=== PATIENT | female | born 1985 | race Caucasian/White ===

== ENCOUNTER 2022-10-25 16:14 | Emergency (ER) | payer OTHER, SELFPAY ==
--- NOTE | ~2022-10-25 | US_ITS ---
EXAMINATION: US VENOUS ULTRASOUND WITH DOPPLER LOWER EXTREMITY, BILATERAL CLINICAL INFORMATION: Pain COMPARISON: None TECHNIQUE: Ultrasound of the deep veins is performed from the hip to the calf with compression sonography and color and pulse Doppler assessment. Spectral analysis with color-flow imaging is performed. FINDINGS: RIGHT: There is normal venous compression and respiratory variation and augmented flow. The visualized common femoral vein, superficial femoral vein, profunda femoral vein, popliteal vein, and the trifurcation region shows no evidence of deep venous thrombosis. There is no significant popliteal fossa cyst. LEFT: There is normal venous compression and respiratory variation and augmented flow. The visualized common femoral vein, superficial femoral vein, profunda femoral vein, popliteal vein, and the trifurcation region shows no evidence of deep venous thrombosis. There is no significant popliteal fossa cyst. If the patient's symptoms persist, followup ultrasound in 5 days 7 days might be of value to exclude proximal propagation from a non-visualized calf vein. Included lymph nodes in the left inguinal region on remarkable. US/US venous duplex LE BI IMPRESSION: No DVT demonstrated in the bilateral lower extremity.
--- NOTE | 2022-10-25 18:13 | PC.NURSE ---
pt was outside when her name was called to triage and was bypassed, pt then came back in to be seen
[2022-10-25 18:14] VITALS: BP 183/101; PULSE 108; RESP 18; TEMP 36.2; O2SAT 100; BMI 38.5
--- NOTE | 2022-10-25 18:21 | ED_ITS ---
HPI - General Adult General Chief complaint: General Medical Stated complaint: L leg swollen, r leg not as swollen, doesn't hurt Time Seen by Provider: 10/25/22 20:30 History of Present Illness HPI narrative: Patient is a 37-year-old female presents today with having bilateral lower extr emity edema. The swelling has been ongoing. Both legs are swollen. Ongoing for 2 weeks. No chest pain or shortness of breath no diaphoresis. Patient also noted to have an elevated blood pressure. No change in diet. No recreational drug use. No history of blood clots. No travel history. No history of cancer. No history of congestive heart failure. Patient from home.. Related Data Previous Rx's Medication Instructions Recorded cephalexin 500 mg capsule 500 mg PO TID 7 days #21 caps 10/25/22 furosemide 20 mg tablet (Lasix) 20 mg PO DAILY #7 tabs 10/25/22 Allergies Allergy/AdvReac Type Severity Reaction Status Date / Time No Known Allergies Allergy Verified 10/25/22 18:13 Review of Systems Review of Systems: Positive leg swelling. No fever no chills. No chest pain or diaphoresis Yes all other systems are reviewed and are negative [facility] [place] Past Medical History Attestation statement: The following information was validated with the patient. Social History Social History Advance Directives: No Advance Directives Information Provided: No Physical Exam ED Vital Signs: Vital Signs - 24 hr 10/25/22 18:14 Temperature 97.1 F Pulse Rate 108 H Respiratory Rate 18 Blood Pressure 183/101 H Pulse Oximetry 100 Oxygen Delivery Method Room Air BMI result Body Mass Index 38.5 Appearance: Alert. Oriented X3. No acute distress. Eyes: Pupils equal, round and reactive to light. ENT: Pharynx normal. Neck: Normal inspection. Neck supple. No lymph nodes noted. No crepitus CVS: Normal heart rate and rhythm. Pulses normal. Normal S1 and S2 Respiratory: No respiratory distress. Breath sounds normal. No Wheezing. No rales Abdomen: Soft and nontender. No rigidity. No distention. good BS x4 Skin: Skin warm and dry. Normal skin color. Normal skin turgor. Extremities: Positive pitting edema bilateral lower extremity. Slightly warm to touch. Distal pulses intact. Sensation intact. The swelling is slightly worse on the left compared to the right Neuro: Oriented X 3. No motor deficit. No sensory deficit. Moving all extermities. No slurred speech Course Course Course Narrative: Patient is a 37-year-old female presents today with having bilateral lower extremity edema. Worse on the left side. There is no fever no chills. Patient not on control. Does not think she is . No nausea no vomiting no chest pain or shortness of breath. Pain noted over the left like. No recent travel no history of cancer. Patient from home. no new medications. Medical Decision Making Medical Decision Making MDM Narrative: Patient 37 years old presents today with having bilateral lower extremity edema. Her BNP is normal. There is no evidence for congestive heart failure. Patient's electrolytes are normal. Patient's Doppler of the bilateral lower extremity was negative for any acute evidence of DVT. Slight redness will go ahead and give patient some Keflex. Close monitoring. We will go ahead and give patient some Lasix to the swelling. In stable condition. Patient warned of the risks of hypertension. Will need follow-up on an outpatient basis. Repeat blood pressure check in 2 days. Differential Diagnoses: Differential diagnosis (Cellulitis, congestive heart failure) Consideration of admission/observation: Consideration of Admission/Observation (Yes no need for admission is patient does not have congestive heart failure) Lab Attestation: I reviewed the patient's lab results. Tests considered but not performed: Tests Considered But Not Performed Prescription medication was considered but ultimately not given after discussion with patient/family. (e.g., pain medication, antiviral, antibiotic): Prescriptions considered but not given Discharge Plan Discharge Clinical Impression: Leg swelling Patient Disposition: Home, Self-Care Additional Instructions: Your blood pressure was very elevated today. Please closely follow-up with your doctor in approximately 2 days for blood pressure recheck. Please take your antibiotic. Please take your water pill. Prescriptions: New furosemide [Lasix] 20 mg tablet 20 mg PO DAILY Qty: 7 0RF cephalexin 500 mg capsule 500 mg PO TID 7 Days Qty: 21 0RF Referrals: Physician,Ronnie J [Primary Care Provider] - 10/30/22 (Blood pressure recheck in 2 days.)
[2022-10-25 18:40] LABS: MANUAL DIFF FLAG NO
[2022-10-25 18:42] LABS: Basophils Absolute Auto 0.1 X10*3/uL (0.0-0.2); Basophils Percent Auto 0.5 % (0-2); Eosinophils Absolute Auto 0.1 X10*3/uL (0.0-0.4); Eosinophils Percent Auto 0.8 % (0-4); Hematocrit 41.3 % (37.0-47.0); Hemoglobin 13.7 g/dl (12.0-16.0); Imm Gran Abs Auto 0.04 X10*3/uL (0.00-0.03); Imm Gran Pct Auto 0.4 % (0.0-0.4); Lymphocytes Absolute Auto 3.3 X10*3/uL (1.2-4.9); Mean Corpuscular HGB Conc 33.2 g/dl (31.0-35.0); Mean Corpuscular Volume 90.6 fL (80.0-98.0); Mean Platelet Volume 9.6 fL (9.4-12.3); Monocytes Absolute Auto 0.7 X10*3/uL (0.1-1.2); Monocytes Percent Auto 6.2 % (2-11); Neutrophils Absolute Auto 6.9 x10*3/uL (2.0-8.3); Neutrophils Percent Auto 62.1 % (45-73); Platelet Count 288 X10*3/uL (160-400); Red Blood Count 4.56 X10*6/uL (4.20-5.50); Red Cell Distribution Width 12.7 % (11.0-16.0); White Blood Count 11.1 X10*3/uL (4.8-10.8)
[2022-10-25 18:58] LABS: Alanine Aminotransferase 24 U/L (0-31); Albumin Level 3.8 g/dL (3.5-5.0); Alkaline Phosphatase 55 U/L (39-117); Anion Gap 10 (12-20); Aspartate Amino Transferase 26 U/L (5-31); Bilirubin Direct 0.2 mg/dL (0.0-0.5); Bilirubin Total 0.4 mg/dL (0.0-1.0); Blood Urea Nitrogen 11 mg/dL (9-16); Carbon Dioxide 31 mmol/L (22-29); Chloride 101 mmol/L (96-108); Creatinine Clr Calc Pharmacy 159.9; Estimated Glomerular Filt Rate > 60; Glucose Random 124 mg/dL (60-115); Potassium 3.9 mmol/L (3.3-5.1); Sodium 138 mmol/L (135-145); Total Protein 6.9 g/dL (6.5-8.0)
[2022-10-25 19:04] LABS: B Type Natriuretic Peptide < 10 pg/mL (<100); HCG Quantitative < 2 mIU/mL
[2022-10-25 20:44] VITALS: BP 152/96; PULSE 84; RESP 16; O2SAT 95
== END 2022-10-25 20:48 | disposition home or self-care (01) ==
PROVIDERS: Emergency Provider Emergency Medicine Emergency Medical Services
DX: R60.0 Localized edema (principal); R06.02 Shortness of breath; Z79.899 Other long term (current) drug therapy
CPT/HCPCS: 36415; 80048; 80076; 83880; 84702; 85025; 93970; 99282; 99284